=== PATIENT | female | born 1940 | race Caucasian/White ===

== ENCOUNTER → 2017-02-09 | Outpatient (CLI) | payer MEDICARE ==
[2014-10-04 10:15] VITALS: BP 112/61
[~2017-02-09] MED LIST: ALEN70TA5 PO; ATOR10TA60 PO; GADOBUTROL 7.5 MMOL/7.5 ML VIAL IV ONE; LISI-338 PO; METO100T2 PO; RIVA20TA2 PO
--- NOTE | 2017-02-09 14:29 | KCIC ---
EXAMINATION: Magnetic resonance imaging (MRI) of the brain and brainstem without and with contrast HISTORY: Sensorineural hearing loss, right-sided. TECHNIQUE: Multiplanar multi-weighted MRI of the brain and brainstem was performed without and with intravenous contrast using the internal auditory canal protocol. This included sequences detailing the internal auditory canals and posterior fossa Contrast information: 6 mL Gadolinium based contrast COMPARISON: None available. FINDINGS: The cerebellopontine angles are normal, with no evidence of extra-axial mass or aneurysm. The VII/VIII nerve complexes appear normal. There are no areas of abnormal contrast enhancement. The upper cervical spinal cord and spine are normal. The scalp and calvarium are normal. The superior sagittal sinus demonstrates normal venous flow. The corpus callosum is normal in shape and signal intensity. The posterior fossa is unremarkable. The pituitary and sella are normal. Few scattered T2/FLAIR signal hyperintense foci are identified in the periventricular and subcortical white matter compatible with mild chronic small vessel ischemic changes. Diffusion weighted images reveal no hyperintensities to suggest acute cerebral infarction. The susceptibility weighted sequences reveal no evidence of acute or chronic hemorrhage. Mild prominence of the ventricles, sulci and basal cisterns is compatible with mild generalized cerebral volume loss. The paranasal sinuses are normal. The visualized portions of the mastoids are unremarkable. The orbits appear normal with exception of bilateral lens replacement. Normal flow voids are demonstrated in the carotid arteries and basilar artery. IMPRESSION: [<No lesions in the posterior fossa, internal auditory canals, or temporal bones to explain the patient's hearing loss.>] Mild generalized volume loss with mild chronic small vessel ischemic changes. Electronically signed by: Guadalupe Mathew MD (02/09/2017 2:26 PM) [id number]
== END | disposition home or self-care (01) ==
LOC: KCIC MRI 12:48
PROVIDERS: ATTEND Otolaryngology
DX: H91.91 Unspecified hearing loss, right ear (principal)
CPT/HCPCS: 70553; A9585

== ENCOUNTER → 2020-10-10 | Outpatient (CLI) | payer MEDICARE ==
[2014-10-04 10:15] VITALS: BP 112/61
[~2020-10-10] MED LIST changes: -ALEN70TA5 PO; +ALEN70TA71 PO; -GADOBUTROL 7.5 MMOL/7.5 ML VIAL IV ONE; -LISI-338 PO; +LISI-517 PO; -METO100T2 PO; +METO100T7 PO
--- NOTE | 2020-10-10 16:08 | KCIC ---
PA and lateral chest radiographs 10/10/2020 CLINICAL HISTORY: Dyspnea on exertion. PA and lateral digital radiographs of chest were obtained. No previous studies are available for swathi hendricks. An intracardiac pacemaker overlies the right ventricle of heart. The cardiac silhouette is mi ldly enlarged. The thoracic aorta is tortuous. Atherosclerotic calcification of the thoracic aorta is seen. No acute pulmonary infiltrate is noted. The pulmonary vasculature is within normal limits. No pneumothorax or pleural effusion is seen. Degenerative changes are seen involving the thoracic spine. IMPRESSION: No acute abnormality is seen. Electronically signed by: Dean Jean MD (10/10/2020 4:05 PM) [id number]
== END ==
LOC: KCIC 15:34
PROVIDERS: ATTEND Internal Medicine
DX: I51.7 Cardiomegaly (principal); Q25.46 Tortuous aortic arch; M47.814 Spondylosis without myelopathy or radiculopathy, thoracic region; Z95.0 Presence of cardiac pacemaker
CPT/HCPCS: 71046